=== PATIENT | male | born 1975 | race Caucasian/White ===

== ENCOUNTER 2023-11-27 07:12 | Day surgery (SDC) | payer OTHER ==
[~2023-11-27] VITALS: Ht 177 cm; Wt 98.0 kg
[2023-11-27] MEDS ORDERED: MEPERIDINE 100 MG INJ. 100 MG/ML VIAL ONE (07:56)
[2023-11-27] MEDS ORDERED: MIDAZOLAM HCL 5 MG/5 ML VIAL ONE ×2 (07:57→08:27)
[2023-11-27] MEDS ORDERED: BENZOCAINE 20% 0.5mL UD SPRAY MM ONE (08:20)
[2023-11-27] MEDS ORDERED: DIPHENHYDRAMINE INJ 50 MG/ML VIAL ONE (08:27)
[2023-11-27] MEDS ORDERED: ONDANSETRON HCL 4 MG/2 ML VIAL ONE (08:43)
[2023-11-27 09:15] VITALS: O2SAT 100
[2023-11-27 16:17] VITALS: BP_SYST 101; PULSE 75; RESP 18
== END 2023-11-27 09:53 | disposition home or self-care (01) ==
LOC: SDS 07:12 → SMU 07:28 → SDS 09:53
PROVIDERS: ATTEND Internal Medicine
DX: R14.0 Abdominal distension (gaseous) (principal); K21.00 Gastro-esophageal reflux disease with esophagitis, without bleeding; K29.50 Unspecified chronic gastritis without bleeding; K29.70 Gastritis, unspecified, without bleeding; K64.8 Other hemorrhoids; K44.9 Diaphragmatic hernia without obstruction or gangrene; K22.70 Barrett's esophagus without dysplasia; Z88.1 Allergy status to other antibiotic agents; Z79.899 Other long term (current) drug therapy
CPT/HCPCS: 45378; 43239; 99152; 88305; 88312; 88313; G0378; J1200; J2250; J2405; J2175